=== PATIENT | female | born 1955 | race Caucasian/White ===

== ENCOUNTER 2024-01-23 07:57 | Emergency (ER) | payer MEDICARE, SELFPAY ==
[2024-01-23] VITALS (8 sets, daily range): BP systolic 115–224; BP diastolic 89–145; PULSE 93–137; RESP 13–27; TEMP 36.6; O2SAT 97–100
--- NOTE | ~2024-01-23 | XR_ITS ---
Portable chest x-ray Comparison: 03/24/2021 Clinical History: Tube placement Findings: Endotracheal tube and NG tube are in satisfactory positions. Possible minimal hazy airspac e disease right upper lobe. Possible COPD. Cardiomediastinal silhouette is stable. Bones and soft ti ssues are unremarkable. Impression: Support tubes, as above. Possible mild haziness right upper lobe. Correlate for subtle pneumonia. Suspected COPD. Reviewed, dictated and finalized at location . REPRESENTATIVE Impression: Support tubes, as above. Possible mild haziness right upper lobe. Correlate for subtle pneumonia. Suspected COPD.
--- NOTE | ~2024-01-23 | CT_ITS ---
Noncontrast CT scan of the cervical spine Technique: Multiple contiguous axial [address] images of the cervical spine were obtained and rec onstructed in 2D sagittal and coronal planes on the acquisition scanner. Dose reduction technique was used on this scan by utilizing automated exposure control, adjustment of the mA and/or kV according to patient size. The dose-length product (DLP) was 246.44 mGy-cm. Clinical History: Unresponsive Findings: No fractures or dislocations. There is moderate degenerative disc change throughout the ce rvical spine, more advanced degenerative disc narrowing at C6-C7. There are mild to moderate facet mickie int degenerative changes throughout the cervical spine. There is left neural foraminal narrowing at C 4-C5. There is bilateral neural foraminal narrowing at C6-C7. No prevertebral soft tissue swelling. Impression: No fracture or subluxation of the cervical spine. Degenerative change, as above. Reviewed, dictated and finalized at [facility]. ENGINE PUMP OPERATOR Impression: No fracture or subluxation of the cervical spine. Degenerative change, as above.
--- NOTE | ~2024-01-23 | XR_ITS ---
Upright portable view of the abdomen Clinical history: NG tube placement Findings: NG tube is in satisfactory position. Bowel gas pattern is nonspecific. No evidence for obst ruction or free air. No abnormal mass lesion or calcification is seen. Osseous structures are intact. Impression: NG tube in satisfactory position. Reviewed, dictated and finalized at [facility]. Y LEVEL STAFF ACCOUNTANT Impression: NG tube in satisfactory position.
--- NOTE | ~2024-01-23 | CT_ITS ---
Non-contrast Head CT History: Unresponsive Technique: Axial non-contrast imaging of the brain was performed. Dose reduction technique was used on this scan by utilizing automated exposure control and iterative reconstruction technique. The dose -length product (DLP) was 605.33 mGy-cm. Findings: There is diffuse subarachnoid hemorrhage, especially throughout the [place] , also filling the sylvian fissures at multiple additional subarachnoid spaces. There is additional p robable parenchymal acute hematoma in the anterior right temporal lobe measuring approximately 3.0 x 1.8 x 2.0 cm in size. There is mild dilatation of the lateral and third ventricles, which could indic ate an element of developing early hydrocephalus. Probable chronic lacunar infarct noted in the isidro. The calvarium appears normal. The visualized paranasal sinuses and mastoid air cells are clear. Impression: Diffuse, extensive subarachnoid hemorrhage, as detailed above, with additional probable 3.0 x 1.8 x 2 .0 cm acute parenchymal hematoma in the anterior right temporal lobe. Aneurysm rupture with associate d parenchymal bleed is a potential consideration. Consider CT angiogram for further evaluation. Possible early developing hydrocephalus, with mild dilatation of the lateral and third ventricles. Case discussed with Dr. Middleton at time of this reading. Reviewed, dictated and finalized at location . L COMPANY HAZMAT DRIVER Impression: Diffuse, extensive subarachnoid hemorrhage, as detailed above, with additional probable 3.0 x 1.8 x 2.0 cm acute parenchymal hematoma in the anterior right te mporal lobe. Aneurysm rupture with associated parenchymal bleed is a potential consideration. Consider CT angiogram for further evaluation. Possible early developing hydrocephalus, with mild dilatation of the lateral an d third ventricles. Case discussed with Dr. Middleton at time of this reading.
--- NOTE | 2024-01-23 08:08 | ECG_ITS ---
Test Date: 2024-01-23 07:57:52 Measurements Intervals [place] Rate: 124 P: 62 OH: 152 QRS: 33 QRSD: 86 T: 67 QT: 354 QTc: 509 Interpretive Statements SINUS TACHYCARDIA ANTEROSEPTAL MYOCARDIAL INFARCTION , OF INDETERMINATE AGE BASELINE ARTIFACT- I, II, III, V6 ABNORMAL ECG No previous ECG available for comparison Electronically Signed On 01-23-2024 12:02:40 HORSE IDENTIFIER by Ever Sánchez D.O.
--- NOTE | 2024-01-23 08:09 | ECG_ITS ---
Test Date: 2024-01-23 08:09:03 Measurements Intervals [place] Rate: 136 P: 62 MS: 120 QRS: 38 QRSD: 91 T: 63 QT: 340 QTc: 511 Interpretive Statements SINUS TACHYCARDIA CANNOT R/O SEPTAL INFARCT, AGE INDETERMINATE BORDERLINE T WAVE ABNORMALITY- ANTEROLAT/INF LEADS BASELINE ARTIFACT- I, II, III, AVR, AVL, AVF Compared to ECG 01/23/2024 07:57:52 HEART RATE HAS INCREASED Electronically Signed On 01-23-2024 12:03:41 [employer] SOLUTIONS DEVELOPER by Eevr Sánchez D.O.
[2024-01-23 08:25] LABS: Basophils Absolute Auto 0.2 K/mm3 (0.0-0.1); Basophils Percent Auto 0.7 % (0.2-1.2); Eosinophils Absolute Auto 0.4 K/mm3 (0-0.3); Eosinophils Percent Auto 1.6 % (0-4.4); Hematocrit 47.2 % (37.0-47.0); Hemoglobin 15.8 g/dL (12.0-15.0); Immature Granulocyte Absolute 0.12 K/mm3 (0.00-0.031); Immature Granulocyte Percent A 0.5 % (0-0.5); Lymphocytes Absolute Auto 11.07 K/mm3 (0.9-3.2); Lymphocytes Percent Auto 44.1 % (18.3-44.2); Mean Corpuscular HGB Conc 33.5 g/dl (32-36); Mean Corpuscular Hemoglobin 32.8 pg (26-34); Mean Corpuscular Volume 98.1 fl (80-100); Mean Platelet Volume 9.4 fl (7.4-10.4); Monocytes Absolute Auto 1.2 K/mm3 (0.1-0.6); Monocytes Percent Auto 4.8 % (2.6-8.5); Neutrophils Absolute Auto 12.1 K/mm3 (1.3-6.7); Neutrophils Percent Auto 48.3 % (45.5-73.1); Platelet Count Result 395 k/mm3 (150-375); Red Blood Count 4.81 M/mm3 (4.2-5.4); Red Cell Distribution Width 13.9 % (11.5-14.5); White Blood Count 25.1 K/mm3 (4.5-10.0)
[2024-01-23 08:35] LABS: Lactic Acid Reflex 1.8 mmol/L (0.7-2.0)
[2024-01-23 08:38] LABS: Alanine Aminotransferase 20 U/L (6-35); Alkaline Phosphatase 123 U/L (38-126); Anion Gap 9 mmol/L (4-12); Aspartate Amino Transferase 37 U/L (14-36); Bilirubin,Total 0.5 mg/dL (0.2-1.3); Blood Urea Nitrogen 14 mg/dL (7-17); Calcium 9.1 mg/dL (8.4-10.2); Carbon Dioxide 22 mmol/L (22-30); Chloride 106 mmol/L (98-107); Cholesterol 207 mg/dL (0-200); Estimated CRCL calculation 51 ml/min; Estimated Glomerular Filt Rate > 60; Glucose 185 mg/dL (65-110); HDL Direct 43 mg/dL; Potassium 3.4 mmol/L (3.4-5.0); Sodium 137 mmol/L (137-145); Triglycerides 183 mg/dL (<150)
[2024-01-23 08:38] LABS: Partial Thromboplastin Time 28.5 Seconds (22.3-36.8); Prothrombin Time 13.2 Seconds (11.1-14.7)
[2024-01-23 08:39] LABS: Alveolar/Arterial O2 Gradient 426.8 mmHg; Carboxyhemoglobin 4.8 % THb (0-2.0); Fractional Inspired Oxygen 100 %; HCO3 ABG 18.7 mEq/l (22.0-26.0); Methemoglobin ABG 0.3 %THb (0-1.5); Oxygen Content ABG 22.5 %vol (16.0-22.0); Oxygen Saturation ABG 99.5 % (95.0-100.0); Oxyhemoglobin 94.5 % THb (90.0-100.0); PCO2 ABG 35.2 mmHg (35.0-45.0); PO2 FiO2 Ratio Arterial Blood 2.51 %; Reduced Hemoglobin 0.4 %THb (0-5.0); Total Hemoglobin 16.5 g/dL (12.0-18.0); pH ABG 7.344 (7.350-7.450)
[2024-01-23 08:41] LABS: Device AMBU BAG; Modified Allen's Test Pass; Site Drawn LEFT RADIAL
[2024-01-23 08:48] LABS: LDL Cholesterol Direct 116 mg/dL
[2024-01-23 08:53] LABS: Troponin I 0.063 ng/mL (0.000-0.034)
[2024-01-23] MEDS: LABETALOL HCL INJ 100 MG/20 ML VIAL 20 MG IV PUSH (09:08)
[2024-01-23] MEDS: levETIRAcetam 1000MG/NACL100ML 1,000 MG/100 ML BAG 400 MG IVPB (09:09)
--- NOTE | 2024-01-23 09:18 | ED_ITS ---
HPI - General Adult General Chief complaint: Chest Pain Stated complaint: STEMI Time Seen by Provider: 01/23/24 08:09 Source: family, EMS and RN notes reviewed Mode of arrival: EMS Limitations: clinical condition History of Present Illness HPI narrative: This is a 68 year old female with history of cerebral aneursym and stent who presents from home unresponsive. EMS reports family heard a thud and she was found unresponsive with agonal respirations. EMS assissted ventilation with BMV. EMS called STEMI in the field. EKG does not shows acute STEMI. She arrived to ER unresponsive and she was intubated by photo printer. FAmily states she receives care at [facility] for cerebral aneurysm. Related Data Allergies Allergy/AdvReac Type Severity Reaction Status Date / Time No Known Allergies Allergy Verified 01/23/24 09:04 Review of Systems Review of Systems: ROS unobtainable: Yes unobtainable due to medical condition and unobtainable due to mental status PMFSH Past Medical History Medical History (Updated 01/23/24 @ 17:57 by Janna Middleton MD) Cerebral aneurysm Surgical History Surgical History (Updated 01/23/24 @ 17:50 by Janna Middleton MD) History of intravascular stent placement Social History Social History (Updated 01/23/24 @ 17:50 by Janna Middleton MD) Smoking status: Smoker, status unknown Exam Const: General: ill appearing Limitations: altered mental status Other: unresponsive HENMT: Head: normal to inspection Eyes: Other: pupils equal about 2 mm unreponsive Neck: Neck: normal visual inspection Chest: Chest palpation & inspection: normal inspection of the chest Resp: Auscultation: clear to auscultation bilaterally Other: patient intubated, ETT in place Cardio: Rate: tachycardic Rhythm: regular rhythm Heart sounds: Murmur heart sound present GI: GI Palp: Yes Soft to palpation, No Tenderness to palpation present (GI) and No Guarding due to palpation present (GI) Auscultation: normal bowel sounds Neuro: Other: unable to assess, patient does not have spontaneous movement Extrem: General: no pedal edema Course Reevaluation(s) Reevaluation #1: I spoke with patient's son. I made him aware of patient findings of likely cerebral aneuysm rupture Date: 01/23/24 Time: 09:00 Consultations Consultation #1: I Spoke with [facility] ED accepts patient. Dr. Rodriguez accepts patient. Date: 01/23/24 Time: 09:20 Vital Signs Vital signs: Vital Signs Pulse Rate 119 H 01/23/24 07:58 Respiratory Rate 27 H 01/23/24 07:58 Blood Pressure 170/110 H 01/23/24 07:58 Pulse Oximetry 98 01/23/24 07:58 Temperature 97.8 F 01/23/24 09:10 Pulse Rate 95 01/23/24 09:31 Respiratory Rate 23 H 01/23/24 09:31 Blood Pressure 146/97 H 01/23/24 09:31 Pulse Oximetry 100 01/23/24 09:31 Oxygen Delivery Mechanical Ventilation 01/23/24 09:30 Fraction of Inspired Oxygen 80 01/23/24 09:00 Medical Decision Making Vital Signs Vital Signs: Vital Signs Pulse Rate 119 H 01/23/24 07:58 Respiratory Rate 27 H 01/23/24 07:58 Blood Pressure 170/110 H 01/23/24 07:58 Pulse Oximetry 98 01/23/24 07:58 Temperature 97.8 F 01/23/24 09:10 Pulse Rate 95 01/23/24 09:31 Respiratory Rate 23 H 01/23/24 09:31 Blood Pressure 146/97 H 01/23/24 09:31 Pulse Oximetry 100 01/23/24 09:31 Oxygen Delivery Mechanical Ventilation 01/23/24 09:30 Fraction of Inspired Oxygen 80 01/23/24 09:00 Lab Data Lab results reviewed: Yes I reviewed the patient's lab results. 01/23/24 08:14 01/23/24 08:14 Labs: Lab Results 01/23/24 01/23/24 01/23/24 Range/Units 08:14 08:15 08:22 WBC 25.1 H (4.5-10.0) K/mm3 RBC 4.81 (4.2-5.4) M/mm3 Hgb 15.8 H (12.0-15.0) g/dL Hct 47.2 H (37.0-47.0) % MCV 98.1 (80-100) fl MCH 32.8 (26-34) pg MCHC 33.5 (32-36) g/dl RDW 13.9 (11.5-14.5) % Plt Count 395 H (150-375) k/mm3 MPV 9.4 (7.4-10.4) fl Immature Gran % (Auto) 0.5 (0-0.5) % Neut % (Auto) 48.3 (45.5-73.1) % Lymph % (Auto) 44.1 (18.3-44.2) % [place] % (Auto) 4.8 (2.6-8.5) % Eos % (Auto) 1.6 (0-4.4) % Baso % (Auto) 0.7 (0.2-1.2) % Lymph # (Auto) 11.07 H (0.9-3.2) K/mm3 [place] # (Auto) 1.2 H (0.1-0.6) K/mm3 Eos # (Auto) 0.4 H (0-0.3) K/mm3 Baso # (Auto) 0.2 H (0.0-0.1) K/mm3 Abs Immat Gran (auto) 0.12 H (0.00-0.031) K/mm3 Absolute Neuts (auto) 12.1 H (1.3-6.7) K/mm3 Absolute Nucleated RBC 0.000 (0.0-0.012) K/mm3 Nucleated RBC % 0.0 (0.0-0.2) % PT 13.2 (11.1-14.7) Seconds INR 1.0 APTT 28.5 (22.3-36.8) Seconds Methemoglobin 0.3 (0-1.5) %THb Sodium 137 (137-145) mmol/L Potassium 3.4 (3.4-5.0) mmol/L Chloride 106 (98-107) mmol/L Carbon Dioxide 22 (22-30) mmol/L Anion Gap 9 (4-12) mmol/L BUN 14 (7-17) mg/dL Creatinine 0.80 (0.7-1.0) mg/dL Estim Creat Clear Calc 51 ml/min Estimated GFR > 60 (59 - ) Glucose 185 H (65-110) mg/dL Lactic Acid 1.8 (0.7-2.0) mmol/L Calcium 9.1 (8.4-10.2) mg/dL Magnesium 2.0 (1.6-2.3) mg/dL Total Bilirubin 0.5 (0.2-1.3) mg/dL AST 37 H (14-36) U/L ALT 20 (6-35) U/L Alkaline Phosphatase 123 (38-126) U/L Troponin I 0.063 H* (0.000-0.034) ng/mL Total Protein 8.0 (6.3-8.2) g/dL Albumin 4.0 (3.5-5.1) g/dL Triglycerides 183 H (<150) mg/dL Cholesterol 207 H (0-200) mg/dL LDL Cholesterol Direct 116 mg/dL HDL Direct 43 mg/dL Blood Type A Positive Antibody Screen Negative ABG Data ABG results: 01/23/24 08:22 Puncture Site Left radial ABG pH 7.344 L ABG pCO2 35.2 ABG pO2 251.0 H ABG PO2/FiO2 Ratio 2.51 ABG HCO3 18.7 L ABG O2 Saturation 99.5 ABG O2 Content 22.5 H ABG Base Excess -6.0 A-a Gradient 426.8 Oxyhemoglobin 94.5 Carboxyhemoglobin 4.8 H Reduced Hemoglobin 0.4 Total Hemoglobin 16.5 O2 Delivery Device Ambu bag O2 Liters/Min 15.0 FiO2 100 Imaging Data Radiologist's impression: ITS Impressions Head CT 01/23/24 08:56 Impression: Diffuse, extensive subarachnoid hemorrhage, as detailed above, with additional probable 3.0 x 1.8 x 2.0 cm acute parenchymal hematoma in the anterior right temporal lobe. Aneurysm rupture with associated parenchymal bleed is a potential consideration. Consider CT angiogram for further evaluation. Possible early developing hydrocephalus, with mild dilatation of the lateral and third ventricles. Case discussed with Dr. Middleton at time of this reading. Cervical Spine CT 01/23/24 09:00 Impression: No fracture or subluxation of the cervical spine. Degenerative change, as above. Chest X-Ray 01/23/24 09:01 Impression: Support tubes, as above. Possible mild haziness right upper lobe. Correlate for subtle pneumonia. Suspected COPD. Abdomen X-Ray 01/23/24 09:02 Impression: NG tube in satisfactory position. Critical Care Time Critical Care Time Critical Care Time: Yes Total Critical Care Time: 40 Discharge Plan Discharge Clinical Impression: Cerebral aneurysm rupture, Intraparenchymal hematoma of brain Patient Disposition: Acute Care Hospital Condition: Critical Follow-up/Referrals: PHYSICIAN NOT ON STAFF,NONSTAFF [Primary Care Provider] - Quality Nora Coma Scale Eyes: No Response Verbal: No Response Motor: No Response Nora Coma Total Score: 3
--- NOTE | 2024-01-23 09:23 | PC.NURSE ---
Dr. Birch and respiratory to room, crash cart and intubation supplies in room. 20 Etomidate given 0803 50 Rocuronium given 0805 pt intubated 7.5, 24 at the lip 0809 NG- L nare at 65 0830-Archer inserted and soft wrist restraints applied
--- NOTE | 2024-01-23 09:42 | PC.NURSE ---
0942- propofol started by [facility] at 5mcg/kg/min.
--- NOTE | 2024-01-23 09:56 | PC.NURSE ---
pt taken by [facility] to C
--- NOTE | 2024-01-23 13:03 | PCCCNOTE ---
Called to the ED for Stemi. Stemi deactivated. Pt was intubated and eventually transferred via helicopter to [place]. Pt family kept updated and questions answered.
--- NOTE | 2024-03-09 14:41 | WPDPROCEDUR ---
Procedures Intubation Intubation Date: 01/23/24 Intubation Time: 08:00 Consent: Emergent Intubation I was called by the ER physician to help her intubate the patient as she was tied up in a different room. Patient was unresponsive, hypoxic and decided to intubate the patient for airway protection and hypoxia A pre-procedural Time-Out was completed immediately before starting the procedure and confirmed: Patient Identification, Site, Procedure, Patient Position and the Availability of Requisite Equipment: Yes Laryngoscope: fiber optic video scope Assist device used: fiber optic device ET tube size: 7.5 Tube secured depth (cm): 23 Tube secured location: lips Tube placement confirmation: visualized tube passing through cords, equal breath sounds bilaterally, no breath sounds over epigastrium and confirmation by capnometry Patient tolerated procedure: well Intubation complications: none Additional comments: ETT in satisfactory position chest x-ray
== END 2024-01-23 09:59 | disposition short-term general hospital (02) ==
PROVIDERS: Internal Medicine; Emergency Provider General Practice
DX: I60.7 Nontraumatic subarachnoid hemorrhage from unspecified intracranial artery (principal); Z95.828 Presence of other vascular implants and grafts; R00.0 Tachycardia, unspecified; R94.31 Abnormal electrocardiogram [ECG] [EKG]; R07.9 Chest pain, unspecified
CPT/HCPCS: 31500; 36415; 36600; 70450; 72125; 80053; 80061; 82375; 82805; 83050; 83605; 83735; 84484; 85018; 85025; 85610; 85730; 86850; 86900; 86901; 93005; 96374; 96375; 99291; J1953; J2704